=== PATIENT | female | born 1980 ===

== ENCOUNTER 2022-01-03 12:54 | Outpatient (CLI) | payer OTHER | END 2022-01-03 14:15 | disposition home or self-care (01) | LOC: PRENATAL 12:54 | PROVIDERS: ATTEND Obstetrics & Gynecology Maternal & Fetal Medicine | DX: O09.519 Supervision of elderly primigravida, unspecified trimester (principal); O35.0XX0 Maternal care for (suspected) central nervous system malformation in fetus, not applicable or unspecified ==

== ENCOUNTER 2022-03-31 14:24 | Outpatient (CLI) | payer OTHER | END 2022-03-31 15:15 | disposition home or self-care (01) | LOC: PRENATAL 14:24 | PROVIDERS: ATTEND Obstetrics & Gynecology Maternal & Fetal Medicine | DX: O26.849 Uterine size-date discrepancy, unspecified trimester (principal); O35.0XX0 Maternal care for (suspected) central nervous system malformation in fetus, not applicable or unspecified; O09.519 Supervision of elderly primigravida, unspecified trimester; Z3A.32 32 weeks gestation of pregnancy ==

== ENCOUNTER 2022-05-07 14:00 | Inpatient (IN) | payer OTHER ==
[~2022-05-07] VITALS: Ht 165.1 cm; Wt 88.9 kg
[2022-05-20] MEDS ORDERED: PRENATAL CAPLE1 EAC1 PO (21:09)
[2022-05-20] MEDS ORDERED: CHILDREN'S ASPI81 MG PO (21:10)
== END 2022-05-24 16:32 | disposition home or self-care (01) | DRG 788 ==
LOC: LDR 05-20 18:13 → OB/GYN 05-22 04:49 → LDR 05-22 14:00 → OB/GYN 05-22 16:04
PROVIDERS: ADMIT Obstetrics & Gynecology; ATTEND Obstetrics & Gynecology
PROC: 10D00Z1 Extraction of Products of Conception, Low, Open Approach (ICD-10-PCS; principal; 2022-05-20)
PROC: 4A1HXCZ Monitoring of Products of Conception, Cardiac Rate, External Approach (ICD-10-PCS; 2022-05-20)
DX: O62.1 Secondary uterine inertia (principal); O99.820 Streptococcus B carrier state complicating pregnancy; Z3A.40 40 weeks gestation of pregnancy; Z37.0 Single live birth; Z20.822 Contact with and (suspected) exposure to COVID-19